=== PATIENT | male | born 1935 | race Caucasian/White ===

== ENCOUNTER 2019-07-10 08:46 | Day surgery (SDC) | payer OTHER, BC ==
[2019-07-09 15:45] VITALS: BMI 31.3
[2019-07-10 10:56] VITALS: TEMP 97.7
[2019-07-10 12:18] VITALS: BP 148/53; PULSE 54
--- NOTE | 2019-07-11 16:58 | PATH ---
Surgical Pathology Report Patient Name: DILIA HOYT [facility]. Rec. #: [id number] /Age/Gender: 1935 (Age: 83) / M Account: [id number] Location: [facility]-ENDOSCOPY Taken: 07/10/2019 Received: 07/10/2019 Reported: 07/11/2019 Physicians: Livier Carter M.D. Specimen(s) Received PROXIMAL TRANSVERSE COLON POLYPS Clinical History Change in bowel habits, colon cancer screening Postoperative diagnosis: Proximal transverse colon polyps, diverticulosis Final Diagnosis PROXIMAL TRANSVERSE COLON, POLYPS, BIOPSY: HYPERPLASTIC POLYP(S). Electronically Signed Nicole Logan M.D. Gross Description Received in formalin, labeled "proximal transverse colon polyps" are 5 escalante, irregular portions of soft tissue measuring 0.1-0.2 cm. in greatest dimension. The specimens are submitted in toto in one cassette. MLSZ/07/10/2019 sanml/07/10/2019
== END 2019-07-10 12:05 | disposition home or self-care (01) ==
LOC: JASU-ENDO 08:46
PROVIDERS: ATTEND Internal Medicine Gastroenterology
PROC: 0DBL8ZX Excision of Transverse Colon, Via Natural or Artificial Opening Endoscopic, Diagnostic (ICD-10-PCS; 2019-07-10)
PROC: 0DBL8ZX Excision of Transverse Colon, Via Natural or Artificial Opening Endoscopic, Diagnostic (ICD-10-PCS; principal; 2019-07-10 09:45)
DX: Z86.010 Personal history of colon polyps (principal); K63.5 Polyp of colon; I25.10 Atherosclerotic heart disease of native coronary artery without angina pectoris; E11.9 Type 2 diabetes mellitus without complications; E78.5 Hyperlipidemia, unspecified; J44.9 Chronic obstructive pulmonary disease, unspecified; N40.0 Benign prostatic hyperplasia without lower urinary tract symptoms; Z95.5 Presence of coronary angioplasty implant and graft; Z79.84 Long term (current) use of oral hypoglycemic drugs; Z79.82 Long term (current) use of aspirin; K57.30 Diverticulosis of large intestine without perforation or abscess without bleeding; K64.8 Other hemorrhoids
CPT/HCPCS: 88305-TC

== ENCOUNTER 2020-11-06 09:53 | Inpatient (IN) | payer OTHER, BC ==
[2020-11-06 10:20] VITALS: BMI 31.0
[2020-11-06 11:41] LABS: BASO % 0.8 % (0-2.0); EOS % 0.6 % (0-4.5); HEMATOCRIT 41.9 % (35.4-49); LYMPH % 13.6 % (8-40); MCH 32.2 pg (25.7-33.7); MCHC 33.3 g/dl (32.0-35.9); MEAN CELL VOLUME 96.7 fl (80-96); MEAN PLT VOLUME 10.7 fl (7.5-11.1); PLATELET COUNT 145 K/MM3 (134-434); RBC 4.33 M/mm3 (4.00-5.60); RDW 13.2 % (11.9-15.9); WHITE BLOOD COUNT 9.4 K/mm3 (4.0-10.0)
[2020-11-06 11:48] LABS: INR 1.09 (0.83-1.09); PROTHROMBIN TIME (PATIENT) 13.2 SEC (9.7-13.0)
[2020-11-06 11:51] LABS: ACTIVATED PTT 27.6 SECONDS (25.2-36.5)
[2020-11-06 12:00] LABS: CHLORIDE 109 mmol/L (98-107); SODIUM 141 mmol/L (136-145)
[2020-11-06 12:02] LABS: CALCIUM 9.5 mg/dL (8.5-10.1)
[2020-11-06 12:03] LABS: ANION GAP 6 MMOL/L (8-16); BLOOD UREA NITROGEN 25.8 mg/dL (7-18); CO2 27 mmol/L (21-32); GLUCOSE,RANDOM 127 mg/dL (74-106); MAGNESIUM 2.5 mg/dL (1.8-2.4)
[2020-11-06 12:05] LABS: SGPT/ALT 51 U/L (13-61)
[2020-11-06 12:06] LABS: CREATININE 1.3 mg/dL (0.55-1.3); PHOSPHOROUS 3.5 mg/dL (2.5-4.9); SGOT/AST 37 U/L (15-37)
[2020-11-06 12:07] LABS: BILIRUBIN,TOTAL 0.6 mg/dL (0.2-1); TOT PROT 6.9 g/dl (6.4-8.2)
[2020-11-06 12:08] LABS: ALK PHOS 60 U/L (45-117)
[2020-11-06 12:11] LABS: N-TERMINAL BNP 309.1 pg/ml (5-450)
[2020-11-06] MEDS: FUROSEMIDE 20 MG TABLET (FP) PO SCH (18:32)
[2020-11-06] MEDS ORDERED: PNEUMOC 13-VAL CONJ-DIP CRM/PF 0.5 ML DISP.SYRIN IM ONE (18:55)
[2020-11-06] MEDS ORDERED: ACETAMINOPHEN 325 MG TABLET (FP) PO ONE (20:35)
[2020-11-06] MEDS: MUPIROCIN 2% TOPICAL OINTMENT FOR DECOLONIZATION NS SCH (21:12)
[2020-11-06] MEDS: ROSUVASTATIN CA 10 MG TABLET (FP) PO SCH (21:12)
[2020-11-06] MEDS: CHLORHEXIDINE GLUCONATE 4% CLEANSER FOR DECOLONIZATION TP SCH (21:12)
[2020-11-06] MEDS: BUDESONIDE/FORMETEROL FUMARATE 80/4.5 mcg INHALER IH SCH (23:10)
[2020-11-06] MEDS: INSULIN SLIDING SCALE (NOVOLOG) 1 VIAL SQ SCH (23:28)
[2020-11-06] MEDS ORDERED: INSULIN (NOVOLOG) ASPART 100 UNITS/ML 10ML VIAL ONE (23:51)
[2020-11-07] MEDS: INSULIN SLIDING SCALE (NOVOLOG) 1 VIAL SQ SCH ×4 (07:18→21:36)
[2020-11-07 07:43] LABS: BASO % 0.4 % (0-2.0); EOS % 0.7 % (0-4.5); HEMATOCRIT 39.3 % (35.4-49); HEMOGLOBIN 13.3 GM/dL (11.7-16.9); MCH 32.4 pg (25.7-33.7); MCHC 33.7 g/dl (32.0-35.9); MEAN CELL VOLUME 96.1 fl (80-96); MEAN PLT VOLUME 9.4 fl (7.5-11.1); MONO % 10.5 % (3.8-10.2); NEUT % 66.4 % (42.8-82.8); PLATELET COUNT 131 K/MM3 (134-434); RBC 4.09 M/mm3 (4.00-5.60); RDW 13.2 % (11.9-15.9); WHITE BLOOD COUNT 7.8 K/mm3 (4.0-10.0)
[2020-11-07 07:49] LABS: INR 1.19 (0.83-1.09); PROTHROMBIN TIME (PATIENT) 14.3 SEC (9.7-13.0)
[2020-11-07 07:51] LABS: ACTIVATED PTT 27.5 SECONDS (25.2-36.5)
[2020-11-07 08:15] LABS: POTASSIUM 4.2 mmol/L (3.5-5.1)
[2020-11-07 08:21] LABS: ALBUMIN 3.5 g/dl (3.4-5.0); CALCIUM 8.9 mg/dL (8.5-10.1)
[2020-11-07 08:22] LABS: BLOOD UREA NITROGEN 20.2 mg/dL (7-18); MAGNESIUM 2.4 mg/dL (1.8-2.4)
[2020-11-07 08:25] LABS: CREATININE 1.1 mg/dL (0.55-1.3); PHOSPHOROUS 3.5 mg/dL (2.5-4.9)
[2020-11-07 08:26] LABS: BILIRUBIN,TOTAL 0.7 mg/dL (0.2-1); TOT PROT 5.9 g/dl (6.4-8.2)
[2020-11-07] MEDS ORDERED: ATROPINE SULFATE 1 MG/10 ML DISP.SYRIN IVPUSH PRN (08:33)
[2020-11-07] MEDS: LOSARTAN POTASSIUM 50 MG TABLET PO SCH (09:17)
[2020-11-07] MEDS: CHOLECALCIFEROL (VIT D3) 1,000 UNIT (25 MCG) TABLET PO SCH (09:17)
[2020-11-07] MEDS: OMEGA-3 ACID ETHYL ESTERS (FATTY-ACIDS) 1 GM CAPSULE (FP) PO SCH (09:17)
[2020-11-07] MEDS: MULTIVITAMINS (DAILY MVI) TABLET (FP) PO SCH (09:17)
[2020-11-07] MEDS: ASPIRIN 81 MG CHEWABLE TABLETS PO SCH (09:17)
[2020-11-07] MEDS: ENOXAPARIN NA (PORCINE) 40 MG/0.4 ML DISP.SYRIN SQ SCH (09:18)
[2020-11-07] MEDS ORDERED: amLODIPine BESYLATE 5 MG TABLET (FP) PO SCH (10:00)
[2020-11-07] MEDS ORDERED: MULTIVITAMIN PO SCH (10:00)
[2020-11-07] MEDS ORDERED: [UNRECOGNIZED DRUG - OTHER] PO SCH (10:00)
[2020-11-07] MEDS: MUPIROCIN 2% TOPICAL OINTMENT FOR DECOLONIZATION NS SCH ×2 (11:00→21:35)
[2020-11-07] MEDS: BUDESONIDE/FORMETEROL FUMARATE 80/4.5 mcg INHALER IH SCH ×2 (11:29→21:36)
[2020-11-07] MEDS ORDERED: PT OWN MED DRAWER 7, Y5N ONE (12:57)
[2020-11-07] MEDS: amLODIPine BESYLATE 2.5 MG TABLET (FP) PO SCH (12:58)
[2020-11-07] MEDS ORDERED: POLYETHYLENE GLYCOL 3350 119 GM BTL PO ONE (16:18)
[2020-11-07] MEDS ORDERED: DESFLURANE GAS 240 ML BOTTLE IH ONE (19:59)
[2020-11-07] MEDS ORDERED: SEVOFLURANE 250 ML BTL ONE (19:59)
[2020-11-07] MEDS ORDERED: SUCCINYLCHOLINE CHLORIDE 200 MG/10 ML SYRINGE ONE (20:00)
[2020-11-07] MEDS ORDERED: ROCURONIUM BROMIDE 50 MG/5 ML SYRINGE ONE (20:00)
[2020-11-07] MEDS: CHLORHEXIDINE GLUCONATE 4% CLEANSER FOR DECOLONIZATION TP SCH (21:36)
[2020-11-07] MEDS: ROSUVASTATIN CA 10 MG TABLET (FP) PO SCH (21:36)
[2020-11-07] MEDS: DOCUSATE SODIUM 100 MG CAPSULE (FP) PO SCH (21:36)
[2020-11-08] MEDS ORDERED: VANCOMYCIN HCL 1,500 MG in DEXTROSE 5%-WATER - 500 ML IVPB ONE (06:00)
[2020-11-08] MEDS ORDERED: VANCOMYCIN 1 GRAM (PRE-DOCKED) 1,000 MG/250 ML BAG IVPB ONE (06:00)
[2020-11-08] MEDS: INSULIN SLIDING SCALE (NOVOLOG) 1 VIAL SQ SCH ×4 (06:39→21:31)
[2020-11-08] MEDS ORDERED: MIDAZOLAM HCL 2 MG/2 ML SINGLE DOSE VIAL ONE ×2 (07:18→08:29)
[2020-11-08] MEDS ORDERED: PROPOFOL 20 ML ONE (07:18)
[2020-11-08 07:27] LABS: BASO % 0.3 % (0-2.0); EOS % 0.6 % (0-4.5); HEMATOCRIT 39.8 % (35.4-49); HEMOGLOBIN 13.3 GM/dL (11.7-16.9); LYMPH % 21.1 % (8-40); MCH 32.2 pg (25.7-33.7); MCHC 33.4 g/dl (32.0-35.9); MEAN CELL VOLUME 96.4 fl (80-96); MEAN PLT VOLUME 10.2 fl (7.5-11.1); MONO % 9.9 % (3.8-10.2); NEUT % 68.1 % (42.8-82.8); PLATELET COUNT 152 K/MM3 (134-434); RBC 4.13 M/mm3 (4.00-5.60); RDW 13.2 % (11.9-15.9); WHITE BLOOD COUNT 9.8 K/mm3 (4.0-10.0)
[2020-11-08 07:39] LABS: BLOOD UREA NITROGEN 23.9 mg/dL (7-18); CALCIUM 8.8 mg/dL (8.5-10.1); MAGNESIUM 2.6 mg/dL (1.8-2.4)
[2020-11-08 07:40] LABS: ALBUMIN 3.4 g/dl (3.4-5.0)
[2020-11-08 07:42] LABS: CREATININE 1.2 mg/dL (0.55-1.3)
[2020-11-08 07:43] LABS: PHOSPHOROUS 3.9 mg/dL (2.5-4.9)
[2020-11-08 07:44] LABS: BILIRUBIN,TOTAL 1.1 mg/dL (0.2-1)
[2020-11-08] MEDS ORDERED: LIDOCAINE HCL 1%, 10 MG/ML (20ML VIAL) ONE (07:45)
[2020-11-08] MEDS ORDERED: GLYCOPYRROLATE 0.2 MG/1 ML VIAL ONE (07:59)
[2020-11-08] MEDS ORDERED: ONDANSETRON 4 MG/2 ML VIAL ONE (07:59)
[2020-11-08] MEDS ORDERED: LIDOCAINE HCL 1%, 10 MG/ML (20ML VIAL) INF ONE ×2 (08:43)
[2020-11-08] MEDS ORDERED: BACITRACIN 50,000 UNITS VIAL TP ONE (08:44)
[2020-11-08] MEDS ORDERED: ePHEDrine SULFATE 50 MG/1 ML AMPULE ONE (08:45)
[2020-11-08] MEDS: MUPIROCIN 2% TOPICAL OINTMENT FOR DECOLONIZATION NS SCH ×3 (10:34→21:31)
[2020-11-08] MEDS ORDERED: PT OWN MED DRAWER 7, Y5N ONE (11:53)
[2020-11-08] MEDS: amLODIPine BESYLATE 2.5 MG TABLET (FP) PO SCH (11:59)
[2020-11-08] MEDS: OMEGA-3 ACID ETHYL ESTERS (FATTY-ACIDS) 1 GM CAPSULE (FP) PO SCH (12:00)
[2020-11-08] MEDS: CHOLECALCIFEROL (VIT D3) 1,000 UNIT (25 MCG) TABLET PO SCH (12:00)
[2020-11-08] MEDS: DOCUSATE SODIUM 100 MG CAPSULE (FP) PO SCH ×2 (12:00→21:31)
[2020-11-08] MEDS: MULTIVITAMINS (DAILY MVI) TABLET (FP) PO SCH (12:00)
[2020-11-08] MEDS: ASPIRIN 81 MG CHEWABLE TABLETS PO SCH (12:00)
[2020-11-08] MEDS: LOSARTAN POTASSIUM 50 MG TABLET PO SCH (12:00)
[2020-11-08] MEDS: BUDESONIDE/FORMETEROL FUMARATE 80/4.5 mcg INHALER IH SCH ×2 (12:04→21:31)
[2020-11-08] MEDS ORDERED: ACETAMINOPHEN 325 MG TABLET (FP) PO PRN (14:06)
[2020-11-08] MEDS: CARVEDILOL 6.25 MG TABLET (FP) PO SCH ×2 (14:40→21:30)
[2020-11-08] MEDS: FUROSEMIDE 20 MG TABLET (FP) PO SCH (16:49)
[2020-11-08] MEDS: CHLORHEXIDINE GLUCONATE 4% CLEANSER FOR DECOLONIZATION TP SCH (21:31)
[2020-11-08] MEDS: ROSUVASTATIN CA 10 MG TABLET (FP) PO SCH (21:31)
[2020-11-08] MEDS ORDERED: CARVEDILOL 6.25 MG TABLET (FP) PO SCH (22:00)
[2020-11-09] MEDS: INSULIN SLIDING SCALE (NOVOLOG) 1 VIAL SQ SCH ×4 (07:00→21:54)
[2020-11-09] MEDS ORDERED: PT OWN MED DRAWER 7, Y5N ONE (10:38)
[2020-11-09] MEDS ORDERED: SENNOSIDES 8.6MG TABLET (FP) PO PRN (10:42)
[2020-11-09] MEDS: ENOXAPARIN NA (PORCINE) 40 MG/0.4 ML DISP.SYRIN SQ SCH (10:47)
[2020-11-09] MEDS: CHOLECALCIFEROL (VIT D3) 1,000 UNIT (25 MCG) TABLET PO SCH (10:48)
[2020-11-09] MEDS: DOCUSATE SODIUM 100 MG CAPSULE (FP) PO SCH ×2 (10:48→21:53)
[2020-11-09] MEDS: LOSARTAN POTASSIUM 50 MG TABLET PO SCH (10:48)
[2020-11-09] MEDS: OMEGA-3 ACID ETHYL ESTERS (FATTY-ACIDS) 1 GM CAPSULE (FP) PO SCH (10:48)
[2020-11-09] MEDS: CARVEDILOL 6.25 MG TABLET (FP) PO SCH ×2 (10:48→21:53)
[2020-11-09] MEDS: MULTIVITAMINS (DAILY MVI) TABLET (FP) PO SCH (10:48)
[2020-11-09] MEDS: MUPIROCIN 2% TOPICAL OINTMENT FOR DECOLONIZATION NS SCH ×2 (10:49→21:30)
[2020-11-09] MEDS: amLODIPine BESYLATE 2.5 MG TABLET (FP) PO SCH (10:49)
[2020-11-09] MEDS: BUDESONIDE/FORMETEROL FUMARATE 80/4.5 mcg INHALER IH SCH ×2 (10:49→21:54)
[2020-11-09] MEDS: ASPIRIN 81 MG CHEWABLE TABLETS PO SCH (10:49)
[2020-11-09 11:58] LABS: BASO % 0.4 % (0-2.0); EOS % 0.8 % (0-4.5); HEMATOCRIT 39.9 % (35.4-49); HEMOGLOBIN 13.2 GM/dL (11.7-16.9); LYMPH % 15.6 % (8-40); MCH 31.9 pg (25.7-33.7); MCHC 33.1 g/dl (32.0-35.9); MEAN CELL VOLUME 96.4 fl (80-96); MEAN PLT VOLUME 9.9 fl (7.5-11.1); NEUT % 72.2 % (42.8-82.8); PLATELET COUNT 144 K/MM3 (134-434); RBC 4.14 M/mm3 (4.00-5.60); RDW 13.5 % (11.9-15.9); WHITE BLOOD COUNT 9.4 K/mm3 (4.0-10.0)
[2020-11-09 12:23] LABS: ALBUMIN 3.4 g/dl (3.4-5.0); BLOOD UREA NITROGEN 23.7 mg/dL (7-18)
[2020-11-09 12:26] LABS: CREATININE 1.2 mg/dL (0.55-1.3)
[2020-11-09 12:27] LABS: BILIRUBIN,TOTAL 0.8 mg/dL (0.2-1)
[2020-11-09 12:28] LABS: TOT PROT 6.1 g/dl (6.4-8.2)
[2020-11-09] MEDS: RANOLAZINE E.R. 500 MG TABLET (FP) PO SCH (21:53)
[2020-11-09] MEDS: ROSUVASTATIN CA 10 MG TABLET (FP) PO SCH (21:53)
[2020-11-09] MEDS: CHLORHEXIDINE GLUCONATE 4% CLEANSER FOR DECOLONIZATION TP SCH (21:53)
[2020-11-10] MEDS: INSULIN SLIDING SCALE (NOVOLOG) 1 VIAL SQ SCH ×3 (06:31→21:46)
[2020-11-10 07:07] LABS: POTASSIUM 4.1 mmol/L (3.5-5.1)
[2020-11-10 07:08] LABS: CALCIUM 8.5 mg/dL (8.5-10.1)
[2020-11-10 07:09] LABS: BLOOD UREA NITROGEN 28.1 mg/dL (7-18); MAGNESIUM 2.3 mg/dL (1.8-2.4)
[2020-11-10 07:12] LABS: CREATININE 1.2 mg/dL (0.55-1.3)
[2020-11-10] MEDS ORDERED: TAMSULOSIN HCL 0.4 MG CAP PO SCH (08:30)
[2020-11-10] MEDS ORDERED: PT OWN MED DRAWER 7, Y5N ONE (09:48)
[2020-11-10] MEDS: ENOXAPARIN NA (PORCINE) 40 MG/0.4 ML DISP.SYRIN SQ SCH (10:02)
[2020-11-10] MEDS: OMEGA-3 ACID ETHYL ESTERS (FATTY-ACIDS) 1 GM CAPSULE (FP) PO SCH (10:04)
[2020-11-10] MEDS: ASPIRIN 81 MG CHEWABLE TABLETS PO SCH (10:05)
[2020-11-10] MEDS: DOCUSATE SODIUM 100 MG CAPSULE (FP) PO SCH ×2 (10:06→21:46)
[2020-11-10] MEDS: LOSARTAN POTASSIUM 50 MG TABLET PO SCH (10:06)
[2020-11-10] MEDS: BUDESONIDE/FORMETEROL FUMARATE 80/4.5 mcg INHALER IH SCH ×2 (10:06→21:47)
[2020-11-10] MEDS: MULTIVITAMINS (DAILY MVI) TABLET (FP) PO SCH (10:06)
[2020-11-10] MEDS: CARVEDILOL 6.25 MG TABLET (FP) PO SCH ×2 (10:07→21:46)
[2020-11-10] MEDS: amLODIPine BESYLATE 2.5 MG TABLET (FP) PO SCH (10:07)
[2020-11-10] MEDS: RANOLAZINE E.R. 500 MG TABLET (FP) PO SCH ×2 (10:07→21:46)
[2020-11-10] MEDS: MUPIROCIN 2% TOPICAL OINTMENT FOR DECOLONIZATION NS SCH ×2 (10:08→21:46)
[2020-11-10] MEDS: CHOLECALCIFEROL (VIT D3) 1,000 UNIT (25 MCG) TABLET PO SCH (10:08)
[2020-11-10] MEDS: FUROSEMIDE 20 MG TABLET (FP) PO SCH (18:59)
[2020-11-10] MEDS: CHLORHEXIDINE GLUCONATE 4% CLEANSER FOR DECOLONIZATION TP SCH (21:46)
[2020-11-10] MEDS: ROSUVASTATIN CA 10 MG TABLET (FP) PO SCH (21:46)
[2020-11-11] MEDS ORDERED: SENNOSIDES 8.6MG TABLET (FP) PO PRN (01:19)
[2020-11-11] MEDS ORDERED: ATROPINE SULFATE 1 MG/10 ML DISP.SYRIN IVPUSH PRN (01:19)
[2020-11-11] MEDS ORDERED: ACETAMINOPHEN 325 MG TABLET (FP) PO PRN (01:19)
[2020-11-11] MEDS: INSULIN SLIDING SCALE (NOVOLOG) 1 VIAL SQ SCH ×2 (06:16→11:15)
[2020-11-11 06:44] VITALS: TEMP 97.6
[2020-11-11] MEDS: UBIDECARENONE 50 MG PO SCH (08:30)
[2020-11-11] MEDS ORDERED: TAMSULOSIN HCL 0.4 MG CAP PO SCH (08:30)
[2020-11-11] MEDS ORDERED: PT OWN MED DRAWER 7, Y5N ONE (08:59)
[2020-11-11] MEDS ORDERED: DOCUSATE SODIUM 100 MG CAPSULE (FP) PO SCH (10:00)
[2020-11-11] MEDS ORDERED: CARVEDILOL 6.25 MG TABLET (FP) PO SCH (10:00)
[2020-11-11] MEDS ORDERED: RANOLAZINE E.R. 500 MG TABLET (FP) PO SCH (10:00)
[2020-11-11] MEDS ORDERED: MUPIROCIN 2% TOPICAL OINTMENT FOR DECOLONIZATION NS SCH (10:00)
[2020-11-11] MEDS ORDERED: MULTIVITAMINS (DAILY MVI) TABLET (FP) PO SCH (10:00)
[2020-11-11] MEDS ORDERED: LOSARTAN POTASSIUM 50 MG TABLET PO SCH (10:00)
[2020-11-11] MEDS ORDERED: CHOLECALCIFEROL (VIT D3) 1,000 UNIT (25 MCG) TABLET PO SCH (10:00)
[2020-11-11] MEDS ORDERED: OMEGA-3 ACID ETHYL ESTERS (FATTY-ACIDS) 1 GM CAPSULE (FP) PO SCH (10:00)
[2020-11-11] MEDS ORDERED: ENOXAPARIN NA (PORCINE) 40 MG/0.4 ML DISP.SYRIN SQ SCH (10:00)
[2020-11-11] MEDS ORDERED: BUDESONIDE/FORMETEROL FUMARATE 80/4.5 mcg INHALER IH SCH (10:00)
[2020-11-11] MEDS ORDERED: amLODIPine BESYLATE 2.5 MG TABLET (FP) PO SCH (10:00)
[2020-11-11] MEDS ORDERED: ASPIRIN 81 MG CHEWABLE TABLETS PO SCH (10:00)
[2020-11-11 11:40] VITALS: BP 141/71; PULSE 63
[2020-11-11] MEDS ORDERED: ROSUVASTATIN CA 10 MG TABLET (FP) PO SCH (22:00)
[2020-11-12] MEDS ORDERED: FUROSEMIDE 20 MG TABLET (FP) PO SCH (10:00)
== END 2020-11-11 14:37 | disposition home health service (06) | DRG 243 ==
LOC: JER 09:53 → JERBED 13:16 → JICU 18:24 → J8W 11-11
PROVIDERS: ADMIT Internal Medicine; ATTEND Student in an Organized Health Care Education/Training Program
PROC: 02HK3JZ Insertion of Pacemaker Lead into Right Ventricle, Percutaneous Approach (ICD-10-PCS; 2020-11-08)
PROC: 02HK3JZ Insertion of Pacemaker Lead into Right Ventricle, Percutaneous Approach (ICD-10-PCS; 2020-11-08)
PROC: 0JH606Z Insertion of Pacemaker, Dual Chamber into Chest Subcutaneous Tissue and Fascia, Open Approach (ICD-10-PCS; principal; 2020-11-08 07:00)
DX: I44.2 Atrioventricular block, complete (principal); I50.32 Chronic diastolic (congestive) heart failure; R55 Syncope and collapse; E66.9 Obesity, unspecified; Z68.31 Body mass index [BMI] 31.0-31.9, adult; I49.5 Sick sinus syndrome; E11.9 Type 2 diabetes mellitus without complications; D69.6 Thrombocytopenia, unspecified; I34.0 Nonrheumatic mitral (valve) insufficiency; I27.20 Pulmonary hypertension, unspecified; E78.00 Pure hypercholesterolemia, unspecified; J44.9 Chronic obstructive pulmonary disease, unspecified; I51.89 Other ill-defined heart diseases; N40.0 Benign prostatic hyperplasia without lower urinary tract symptoms; I10 Essential (primary) hypertension; I25.119 Atherosclerotic heart disease of native coronary artery with unspecified angina pectoris; Z95.5 Presence of coronary angioplasty implant and graft; E78.5 Hyperlipidemia, unspecified
CPT/HCPCS: 36415; 70450-TC; 71045-TC-FY; 72125-TC; 76000-TC-FY; 80048; 80053; 82550; 82553; 82962; 83735; 83880; 84100; 84443; 84484; 85025; 85610; 85730; 93005; 93010; 97116-GP; 97162-GP; 99285-25; C9803; U0003